=== PATIENT | female | born 1940 | race Caucasian/White ===

== ENCOUNTER 2022-10-23 12:47 | Emergency (ER) | payer MEDICARE, SELFPAY ==
[2022-10-23 12:55] VITALS: BP 154/84; PULSE 80; RESP 18; TEMP 36.8; O2SAT 97; BMI 30.1
[2022-10-23 13:03] VITALS: O2SAT 95
--- NOTE | 2022-10-23 13:31 | XR_ITS ---
The [place] [id number] Patient Name: DONTRELL RYAN MRN: [id number] date: 1940 Sex: F Assigned Patient Location: ER Current Patient Location: ER Accession/Order Number: [id number] Exam Date: 10/23/2022 13:40 Report Date: 10/23/2022 14:20 At the request of: GEORGI MICHAEL Procedure: XR hand RT min 3V PROCEDURE: XR wrist RT min 3V, XR hand RT min 3V HISTORY: Fall ; right hand and wrist pain after falling COMPARISON: None. FINDINGS: BONES:Moderate-marked degenerative joint disease involving the first tarsal-metatarsal joint and distal interphalangeal joints of the second third digits. Moderate degenerative joint disease throughout remainder of the hand and wrist. SOFT TISSUES:No visible soft tissue swelling. EFFUSION:None visible. OTHER: Negative. IMPRESSION: 1. No appreciable acute bone abnormality. 2. Multifocal moderate-marked degenerative joint disease. Electronically authenticated by: FER GOMEZ Date: 10/23/2022 14:20
--- NOTE | 2022-10-23 13:31 | XR_ITS ---
The [place] [id number] Patient Name: DONTRELL RYAN MRN: [id number] date: 1940 Sex: F Assigned Patient Location: ER Current Patient Location: ER Accession/Order Number: [id number] Exam Date: 10/23/2022 13:40 Report Date: 10/23/2022 14:20 At the request of: GEORGI MICHAEL Procedure: XR wrist RT min 3V PROCEDURE: XR wrist RT min 3V, XR hand RT min 3V HISTORY: Fall ; right hand and wrist pain after falling COMPARISON: None. FINDINGS: BONES:Moderate-marked degenerative joint disease involving the first tarsal-metatarsal joint and distal interphalangeal joints of the second third digits. Moderate degenerative joint disease throughout remainder of the hand and wrist. SOFT TISSUES:No visible soft tissue swelling. EFFUSION:None visible. OTHER: Negative. IMPRESSION: 1. No appreciable acute bone abnormality. 2. Multifocal moderate-marked degenerative joint disease. Electronically authenticated by: FER GOMEZ Date: 10/23/2022 14:20
--- NOTE | 2022-10-23 13:47 | CT_ITS ---
The [address] [address] Patient Name: DONTRELL RYAN MRN: [facility]:[id number] date: 1940 Sex: F Assigned Patient Location: ER Current Patient Location: ER Accession/Order Number: [id number] Exam Date: 10/23/2022 13:43 Report Date: 10/23/2022 14:17 At the request of: GEORGI MICHAEL Procedure: CT head/brain wo con EXAM: CT head/brain wo con HISTORY: Fall COMPARISON: None. TECHNIQUE: Axial soft tissue and bone windows through the calvarium with coronal and sagittal reformats. CT dose reduction technique was used including Automated Exposure Control. Findings: No depressed or calvarial fracture. The paranasal sinuses and mastoid air cells are well aerated. No air-fluid levels. No extra-axial fluid collection. No intra-axial or extra-axial bleed. No mass effect or midline shift. The kennedy-white matter differentiation is preserved. There are supratentorial deep white matter low attenuation lesions which are nonspecific but commonly attributed to chronic small vessel ischemic disease. The brain parenchymal volume is reduced and there is ex vacuo dilatation of the ventricles. The basal cisterns are patent. The craniovertebral junction is unremarkable. IMPRESSION: 1. No depressed or calvarial fracture. 2. No acute intracranial bleed. 3. Senescent changes. Electronically authenticated by: SCOTTIE ROMAN Date: 10/23/2022 14:17
--- NOTE | 2022-10-23 13:58 | ED_ITS ---
HPI - Trauma <JAIME Mccoy - Last Filed: 10/23/22 14:41> General Chief Complaint: Extremity Injury, Upper Stated Complaint: UPPER EXTEMITY INJURY RIGHT EYEBROW Time Seen by Provider: 10/23/22 13:14 Source: patient Mode of arrival: walk-in Limitations: no limitations History of Present Illness HPI narrative: Patient is a 82-year-old female who presents to the emergency department for the evaluation of injuries after a fall. Patient states she tripped on a curb. She is not on anticoagulation, she did strike the right orbit on the ground and sustained a laceration. She complains of minimal pain to the right wrist and right knee. She states her tetanus is up-to-date. No medications taken prior to arrival. She denies any pain to the neck, back, lower extremities or hips. Related Data Allergies Allergy/AdvReac Type Severity Reaction Status Date / Time No Known Drug Allergies Allergy Verified 10/23/22 12:55 Review of Systems <JAIME Mccoy Last Filed: 10/23/22 14:41> ROS Constitutional Denies: fever or chills Ears, nose, mouth, and throat Denies: neck pain Respiratory Denies: shortness of breath Gastrointestinal Denies: nausea or vomiting Musculoskeletal Denies: back pain or neck pain Integumentary/Breast Denies: rash Neurological Denies: headache or numbness in extremities Hematologic/Lymphatic Denies: easy bruising Exam <JAIME Mccoy Last Filed: 10/23/22 14:41> Narrative Exam Narrative: Gen.: Awake, alert, in no distress Head: Normocephalic, atraumatic ENT: Moist mucous membranes. No injuries noted to the nose or mouth. Patient with a 1cm and adjacent 2.5cm laceration of the right upper eyelid under the eyebrow. No active bleeding noted. Mild surrounding edema and ecchymosis of the orbit. Respiratory: No respiratory distress, lungs clear bilaterally Cardio: Regular rate and rhythm Back: No tenderness of the cervical spine, lumbar spine or thoracic spine Extremities: Moves extremities equally, right wrist with minimal tenderness of the right thumb and right distal ulna with a small mount of ecchymosis noted. Normal flexion and extension. No bony point tenderness of the hips, pelvis, knees. Well-healed surgical incisions over the bilateral anterior knees from prior arthroplasty. Psych: Normal mood and affect Neuro: No focal neuro deficit Skin: Warm, dry, lacerations as described above yet Constitutional Vital Signs - 24 hr 10/23/22 12:55 10/23/22 13:03 Temperature 98.2 F Pulse Rate [Monitor] 80 Respiratory Rate 18 Blood Pressure [Left Arm] 154/84 H Pulse Oximetry 97 95 Oxygen Delivery Method Room Air <Armani Quinonez - Last Filed: 10/23/22 15:17> Constitutional Vital Signs - 24 hr 10/23/22 12:55 10/23/22 13:03 Temperature 98.2 F Pulse Rate [Monitor] 80 Respiratory Rate 18 Blood Pressure [Left Arm] 154/84 H Pulse Oximetry 97 95 Oxygen Delivery Method Room Air Course <JAIME Mccoy - Last Filed: 10/23/22 14:41> Vital Signs Vital signs: Vital Signs Temperature 98.2 F 10/23/22 12:55 Pulse Rate 80 10/23/22 12:55 Respiratory Rate 18 10/23/22 12:55 Blood Pressure 154/84 H 10/23/22 12:55 Pulse Oximetry 97 10/23/22 12:55 Temperature 98.2 F 10/23/22 12:55 Pulse Rate 80 10/23/22 12:55 Respiratory Rate 18 10/23/22 12:55 Blood Pressure 154/84 H 10/23/22 12:55 Pulse Oximetry 95 10/23/22 13:03 Oxygen Delivery Method Room Air 10/23/22 13:03 <Armani Quinonez - Last Filed: 10/23/22 15:17> Vital Signs Vital signs: Vital Signs Temperature 98.2 F 10/23/22 12:55 Pulse Rate 80 10/23/22 12:55 Respiratory Rate 18 10/23/22 12:55 Blood Pressure 154/84 H 10/23/22 12:55 Pulse Oximetry 97 10/23/22 12:55 Temperature 98.2 F 10/23/22 12:55 Pulse Rate 80 10/23/22 12:55 Respiratory Rate 18 10/23/22 12:55 Blood Pressure 154/84 H 10/23/22 12:55 Pulse Oximetry 95 10/23/22 13:03 Oxygen Delivery Method Room Air 10/23/22 13:03 MDM - Trauma <JAIME Mccoy - Last Filed: 10/23/22 14:41> [facility] Narrative Medical decision making narrative: Patient sent for CT of the head, right hand and right wrist x-rays. These imaging studies are unremarkable and the laceration was repaired without difficulty. Please see procedure note for details. Sutures removed in 5-7 days with PCP, return to the emergency department if symptoms change or worsen. Patient was provided a tube of bacitracin for home, no indication for antibiotics at this time. Tetanus is up-to-date and she declined pain medication. Laceration repair: Done under sterile conditions. The use of Shur-Clens prep the area. Local injection with lidocaine 1% with epi was used, approximately 5 cc. The wound was irrigated copiously with normal saline. The wound was explored there was no evidence of foreign material. The laceration was approximated with 5-0 nylon. 2 simple interrupted sutures were placed in the smaller laceration, three sutures were placed in the larger laceration. Patient tolerated the procedure well. The patient was neurovascularly intact post. the patient had bacitracin applied to the laceration and a dry sterile dressing was place. The patient will need to follow-up in the next 6-8 days for removal Medical Records Attestation: I reviewed the patient's medical records. Imaging Data CT scan - head: Attestation: I have reviewed the pertinent imaging results. right wrist XR: Attestation: I have reviewed the pertinent imaging results. <Armani Quinonez - Last Filed: 10/23/22 15:17> [facility] Narrative Medical decision making narrative: Patient sent for CT of the head, right hand and right wrist x-rays. These imaging studies are unremarkable and the laceration was repaired without difficulty. Please see procedure note for details. Sutures removed in 5-7 days with PCP, return to the emergency department if symptoms change or worsen. Patient was provided a tube of bacitracin for home, no indication for antibiotics at this time. Tetanus is up-to-date and she declined pain medication. Laceration repair: Done under sterile conditions. The use of Shur-Clens prep the area. Local injection with lidocaine 1% with epi was used, approximately 5 cc. The wound was irrigated copiously with normal saline. The wound was explored there was no evidence of foreign material. The laceration was approximated with 5-0 nylon. 2 simple interrupted sutures were placed in the smaller laceration, three sutures were placed in the larger laceration. Patient tolerated the procedure well. The patient was neurovascularly intact post. the patient had bacitracin applied to the laceration and a dry sterile dressing was place. The patient will need to follow-up in the next 6-8 days for removal For this patient encounter I reviewed the mid-level provider?s documentation, medical decision-making and treatment plan, and I personally spent time with this patient. Shared APC visit, physician attestation: [id number]: The visit was performed by both a physician and an APC. I performed all aspects of MDM as documented. - Olvin, DO Discharge Plan Discharge Chief Complaint: Extremity Injury, Upper Clinical Impression: Closed head injury, Facial laceration, Fall, Contusion of right wrist, initial encounter Patient Disposition: Home, Self-Care Time of Disposition Decision: 14:34 Condition: Good Instructions: Contusion in Adults (ED), Facial Laceration (ED) Additional Instructions: Sutures out on Friday or Friday (10/28-10/29/22) with Dr. Sanchez Stand Alone Forms: Portal Instructions Referrals: AUDREY SANCHEZ [Primary Care Provider] - 1 week
[2022-10-23] MEDS: LIDOCAINE HCL 1%-EPINEPHRINE 1:100,000 20 ML MDV (14:16)
[2022-10-23] MEDS: BACITRACIN OINTMENT 28.4 GM TUBE 1 APPLIC TOPICAL (14:16)
[2022-10-23] MEDS: LIDOCAINE HCL 1%-EPINEPHRINE 1:100,000 10 ML MDV INJ (14:16)
== END 2022-10-23 15:17 | disposition home or self-care (01) ==
PROVIDERS: Emergency Provider Emergency Medicine; PCP Internal Medicine
DX: S01.111A Laceration without foreign body of right eyelid and periocular area, initial encounter (principal); S09.8XXA Other specified injuries of head, initial encounter; S60.211A Contusion of right wrist, initial encounter; W01.198A Fall on same level from slipping, tripping and stumbling with subsequent striking against other object, initial encounter
CPT/HCPCS: 12013; 70450; 73110; 73130; 99284

== ENCOUNTER 2022-12-21 08:11 | Outpatient (OUT) | payer MEDICARE, SELFPAY ==
[2022-12-21 08:51] LABS: Bilirubin Urine NEGATIVE (NEGATIVE); Blood Urine NEGATIVE (NEGATIVE); Clarity Urine CLEAR (CLEAR); Color Urine LT. YELLOW (YELLOW); Glucose Urine UA NEGATIVE (NEGATIVE); Hematocrit 33.4 % (36.0-48.0); Hemoglobin 11.1 g/dL (12.0-16.0); Ketones Urine NEGATIVE (NEGATIVE); Leukocyte Esterase Urine NEGATIVE (NEGATIVE); Mean Corpuscular HGB Conc 33.2 g/dL (29.9-35.2); Mean Corpuscular Hemoglobin 29.1 pg (26.7-34.0); Mean Corpuscular Volume 87.4 fL (81.0-99.0); Mean Platelet Volume 9.8 fL (9.5-13.5); Nitrite Urine NEGATIVE (NEGATIVE); Platelet Count 156 10^3/uL (150-450); Protein Urine NEGATIVE (NEG/TRACE); Red Blood Count 3.82 10^6/uL (4.20-5.40); Red Cell Distribution Width 15.4 % (11.0-15.0); Urobilinogen Urine 0.2 EU/dL (0.2-1.0); White Blood Count 3.9 10^3/uL (4.0-11.0)
[2022-12-21 10:00] LABS: Specific Gravity Urine 1.015 (1.005-1.025)
[2022-12-21 10:01] LABS: Bacteria Urine NONE SEEN #/HPF (NONE SEEN); RBC Urine NONE SEEN #/HPF (0-2); WBC Urine NONE SEEN #/HPF (NONE SEEN)
[2022-12-21 10:02] LABS: Mucus Urine NONE SEEN (NONE SEEN); Squamous Epithelial Cell Urine RARE #/LPF (NONE/RARE)
[2022-12-21 10:46] LABS: Albumin Level 4.4 g/dL (3.4-5.0); Anion Gap 13.1; BUN Creatinine Ratio 24.8; Calcium 9.4 mg/dL (8.5-10.1); Carbon Dioxide 28.2 mmol/L (21.0-32.0); Chloride 102 mmol/L (98-107); Estimated GFR (African America 51 (>=60); Estimated GFR (Non-African Ame 42 (>=60); Glucose 95 mg/dL (74-106); Magnesium 1.7 mg/dL (1.8-2.4); Phosphorus 3.5 mg/dL (2.6-4.7); Potassium 4.3 mmol/L (3.5-5.1); Sodium 139 mmol/L (136-145); Uric Acid 3.6 mg/dL (2.6-6.0)
[2022-12-21 11:18] LABS: Percent Iron Saturation 31.7 %
[2022-12-23 13:08] LABS: PTH, Intact 44 pg/mL (15-65)
== END 2022-12-21 08:12 | disposition home or self-care (01) ==
PROVIDERS: PCP Internal Medicine; Visit Provider Internal Medicine
DX: I12.9 Hypertensive chronic kidney disease with stage 1 through stage 4 chronic kidney disease, or unspecified chronic kidney disease (principal); N18.30 Chronic kidney disease, stage 3 unspecified; D63.1 Anemia in chronic kidney disease; N25.81 Secondary hyperparathyroidism of renal origin; M10.9 Gout, unspecified; E78.5 Hyperlipidemia, unspecified; E87.1 Hypo-osmolality and hyponatremia
CPT/HCPCS: 36415; 80069; 81001; 82306; 82728; 83540; 83550; 83735; 83970; 84550; 85027

== ENCOUNTER 2023-11-05 13:12 | Outpatient (OUT) | payer MEDICARE, SELFPAY ==
--- NOTE | 2023-11-05 | XR_ITS ---
[address] [address] Patient Name: DONTRELL RYAN MRN: [id number] date: 1940 Sex: F Assigned Patient Location: [facility] Current Patient Location: [facility] Accession/Order Number: [id number] Exam Date: 11/05/2023 13:30 Report Date: 11/05/2023 15:44 At the request of: AUDREY SANCHEZ Procedure: XR DEXA axial skeleton EXAMINATION: XR DEXA axial skeleton HISTORY: ESTROGEN DEFICIENCY E28.39 COMPARISON: DEXA bone densitometry 10/28/2016 TECHNIQUE: Dual-energy X-ray absorptiometry (DXA) was performed. FINDINGS: SPINE ANALYSIS: Average bone mineral density is 1.239 g/cm2. T-score (standard deviation relative to young adult mean): 0.5 . +10.2% change since prior study. HIP ANALYSIS: Lowest bone mineral density is within the left femoral neck, 0.826 g/cm2. T-score (standard deviation relative to young adult mean): -1.5 . -11.5% change since prior study. XR/XR DEXA axial skeleton IMPRESSION: World Health Organization Classification: Osteopenia - Moderate Fracture Risk FRAX: Cannot calculi. Pharmacologic treatment recommendations * No uniform recommendation applies to all patients. Management plans must be individualized. * Consider initiating pharmacologic treatment in postmenopausal women and men >= 50 years of age who have the following: Primary fracture prevention: * T-score <= - 2.5 at the femoral neck, total hip, lumbar spine, 33% radius (some uncertainty with existing data) by DXA. * Low bone mass (osteopenia: T-score between - 1.0 and - 2.5) at the femoral neck or total hip by DXA with a 10-year hip fracture risk >= 3% or a 10-year major osteoporosis-related fracture risk >= 20% (i.e., clinical vertebral, hip, forearm, or proximal humerus) based on the [place]-adapted FRAXregistered model. Secondary fracture prevention: * Fracture of the hip or vertebra regardless of BMD [4, 5]. * Fracture of proximal humerus, pelvis, or distal forearm in persons with low bone mass (osteopenia: T-score between - 1.0 and - 2.5). The decision to treat should be individualized in persons with a fracture of the proximal humerus, pelvis, or distal forearm who do not have osteopenia or low BMD [12, 13]. Cecilia MS, Rick SL, Richard KL, Toney EM, Jero KG, AJ, Ezequiel ES. The clinician's guide to prevention and treatment of osteoporosis. Osteoporos Int. 2021;33(10):6428-8689. doi: 10.1007/s78803-686-43529-x. Epub 2021Aug 30. Erratum in: Osteoporos Int. 2021Nov 29;: PMID: 50229824; PMCID: [id number]. Electronically authenticated by: FER GOMEZ Date: 11/05/2023 15:44
== END 2023-11-05 13:13 | disposition home or self-care (01) ==
LOC: RAD 13:12
PROVIDERS: PCP Internal Medicine; Visit Provider Internal Medicine
DX: E28.39 Other primary ovarian failure (principal); M85.80 Other specified disorders of bone density and structure, unspecified site
CPT/HCPCS: 77080

== ENCOUNTER 2024-07-12 15:56 | Outpatient (OUT) | payer MEDICARE, SELFPAY ==
--- NOTE | 2024-07-12 16:13 | XR_ITS ---
The [address] [address] Patient Name: DONTRELL RYAN MRN: [id number] date: 1940 Sex: F Assigned Patient Location: RAD Current Patient Location: [facility] Accession/Order Number: [id number] Exam Date: 07/12/2024 17:40 Report Date: 07/12/2024 17:42 At the request of: AUDREY SANCHEZ Procedure: XR chest 2V Plain film chest 2 view HISTORY: Persistent cough for one week COMPARISON: None FINDINGS: SUPPORT DEVICES: None POSTSURGICAL CHANGES: None HEART: Within normal limits PULMONARY KRYSTLE: Within normal limits MEDIASTINUM: Atherosclerosis of thoracic aorta LUNGS AND PLEURA: Left basilar atelectasis/infiltrate. BONY STRUCTURES: Intact ADDITIONAL FINDINGS None XR/XR chest 2V IMPRESSION: Left basilar atelectasis/infiltrate Impression dictated by: Joo Juarez M.D.07/12/2024 5:42 PM Dictation Location[facility] Electronically authenticated by: [id number] Y Date: 07/12/2024 17:42
== END 2024-07-12 15:57 | disposition home or self-care (01) ==
PROVIDERS: PCP Internal Medicine; Visit Provider Internal Medicine
DX: R05.3 Chronic cough (principal); J98.11 Atelectasis
CPT/HCPCS: 71046